=== PATIENT | female | born 1995 ===

== ENCOUNTER 2021-03-24 06:01 | Inpatient (IN) ==
[2021-03-24] MEDS ORDERED: BUTORPHANOL 2 MG/ML VIAL IV PRN (07:42)
[2021-03-24] MEDS ORDERED: MEPERIDINE 50 MG/1 ML VIAL IV PRN (07:42)
[2021-03-24] MEDS ORDERED: ONDANSETRON 4 MG/2 ML VIAL IV PRN ×2 (07:42→20:48)
[2021-03-24] MEDS ORDERED: LIDOCAINE 1% 50 ML VIAL MISC INJ ONE (07:42)
[2021-03-24] MEDS ORDERED: AMPICILLIN INJ 2,000 MG in SODIUM CHLORIDE 0.9% 100 ML IV ONE (07:45)
[2021-03-24] MEDS: LACTATED RINGERS 1,000 ML IV SCH ×2 (08:00→13:48)
[2021-03-24 08:33] LABS: Basophils % 0.1 % (0.0-0.8); Eosinophils # 0.1 10*3/uL (0.0-0.87); Hematocrit 35.7 VOL% (35.7-47.0); Hemoglobin 11.8 GM/DL (12.0-16.0); Immature Granulocytes % 0.6 %; Immature Granulocytes Absolute 0.05 #; Lymphocytes # 1.5 10*3/uL (1.4-4.0); Lymphocytes % 16.6 % (21.3-54.2); Mean Corpuscular HGB Conc 33.1 GM/DL (32-36); Mean Corpuscular Volume 77.9 FL (87-102); Mean Platelet Volume 11.2 FL (9.6-12.0); Monocytes % 6.7 % (1.7-12.7); Platelet Count 211 T/CUMM (130-400); Red Blood Count 4.58 MC/CUMM (3.8-5.5); Red Cell Distribution Width 14.8 % (9.3-17.3); White Blood Count 8.9 T/CUMM (4-12)
[2021-03-24 09:16] LABS: Albumin 2.6 G/DL (3.4-5.0); Bilirubin,Total 0.8 MG/DL (0.20-1.00); Calcium 8.4 MG/DL (8.5-10.1); Osmolality,Calculated 274.5 MOS/KG (273-304); Potassium 3.8 MMOL/L (3.5-5.1); Total Protein 6.4 G/DL (6.4-8.2)
[2021-03-24] MEDS: AMPICILLIN INJ 1,000 MG in SODIUM CHLORIDE 0.9% 100 ML IV SCH ×2 (11:57→15:54)
[2021-03-24] MEDS ORDERED: LACTATED RINGERS 1,000 ML IV ONE (12:43)
[2021-03-24] MEDS ORDERED: diphenhydrAMINE 50 MG/1 ML VIAL IV PRN ×2 (12:43)
[2021-03-24] MEDS ORDERED: FAMOTIDINE 20 MG/2 ML VIAL IV ONE (12:43)
[2021-03-24] MEDS ORDERED: PROMETHAZINE 25 MG/1 ML VIAL IM ONE (12:43)
[2021-03-24] MEDS ORDERED: NALOXONE 0.4 MG/ML VIAL IV PRN (12:43)
[2021-03-24] MEDS ORDERED: CITRIC ACID/SODIUM CITRATE 30 ML UDCUP PO ONE (12:43)
[2021-03-24] MEDS ORDERED: hydrOXYzine HCL 25 MG/1 ML VIAL IM PRN (12:43)
[2021-03-24] MEDS ORDERED: ePHEDrine 50 MG/ML VIAL IV PRN (12:43)
[2021-03-24] MEDS: fentaNYL 2 MCG/ROPIV 0.2% EPID 100 ML EPIDURAL SCH ×2 (13:26→19:45)
[2021-03-24 14:37] LABS: Bilirubin,Urine Negative (Negative); Blood, Urine Small mg/dL (Negative); Glucose,Urine (UA) Negative (Negative); Ketones,Urine Negative (Negative); Nitrite,Urine Negative (Negative); Protein,Urine Negative; RBC,Urine 6 /HPF (0-4); Squamous Epithelial Cell,Urine Occasional /HPF (0-10); Urine Appearance CLEAR (Clear); Urine Color Yellow (Yellow); Urine Specific Gravity 1.012 (1.001-1.035); Urine Urobilinogen < 2.0 EU/DL (0.2-1.0)
[2021-03-24] MEDS ORDERED: OXYTOCIN/LR 20 UNIT/1,000 ML BAG IV SCH (17:30)
[2021-03-24] MEDS ORDERED: fentaNYL 100 MCG/2 ML VIAL ONE (18:16)
[2021-03-24] MEDS ORDERED: miSOPROStoL 200 MCG TABLET ONE (19:56)
[2021-03-24] MEDS ORDERED: OXYTOCIN/LR 20 UNIT/1,000 ML BAG IV ONE ×2 (19:56→20:48)
[2021-03-24] MEDS ORDERED: TRANEXAMIC ACID 1,000 MG/10 ML VIAL ONE (19:56)
[2021-03-24] MEDS ORDERED: CARBOPROST TROMETHAMINE 250 MCG/ML AMP IM ONE (19:57)
[2021-03-24] MEDS ORDERED: METHYLERGONOVINE 0.2 MG/1 ML AMP ONE (19:57)
[2021-03-24] MEDS ORDERED: RHO(D) IMMUNE GLOBULIN 300 MCG SYRINGE IM ONE (20:48)
[2021-03-24] MEDS ORDERED: MEASLES/MUMPS/RUBELLA VACCINE 0.5 ML VIAL SUBCUT ONE (20:48)
[2021-03-24] MEDS ORDERED: BISACODYL 10 MG SUPP RECTAL PRN (20:48)
[2021-03-24] MEDS ORDERED: ACETAMINOPHEN 325 MG TABLET PO PRN (20:48)
[2021-03-24] MEDS ORDERED: IBUPROFEN 800 MG TABLET PO PRN (20:48)
[2021-03-24] MEDS ORDERED: LANOLIN 50% CREAM 0.3 OZ TUBE TOP PRN (20:48)
[2021-03-24] MEDS ORDERED: HYDROCORTISONE 2.5% RECTAL CREAM 30 GM TUBE TOP PRN (20:48)
[2021-03-24] MEDS ORDERED: BENZOCAINE 20%/MENTHOL 0.5% SPRAY 56 GM CAN TOP PRN (20:48)
[2021-03-24] MEDS ORDERED: DIPH/TET/ACEL PERT BOOSTER VACCINE 0.5 ML VIAL IM ONE (20:48)
[2021-03-24] MEDS ORDERED: oxyCODONE/ACETAMINOPHEN 5-325 MG TABLET PO PRN ×2 (20:48)
[2021-03-24] MEDS ORDERED: WITCH HAZEL PADS 100/JAR TOP PRN (20:48)
[2021-03-24 21:24] LABS: Cord Arterial Blood HCO3 21.5 MMOL/L
[2021-03-24 21:25] LABS: Cord Venous Blood HCO3 24.1 MMOL/L; Cord Venous Blood PCO2 45.2 MMHG; Cord Venous Blood PO2 34.4 MMHG
[2021-03-25] MEDS: DOCUSATE SODIUM 100 MG CAPSULE PO SCH ×3 (01:09→20:25)
[2021-03-25 05:07] LABS: Basophils % 0.1 % (0.0-0.8); Eosinophils # 0.1 10*3/uL (0.0-0.87); Eosinophils % 1.1 % (0.00-10.9); Hematocrit 31.3 VOL% (35.7-47.0); Hemoglobin 10.2 GM/DL (12.0-16.0); Immature Granulocytes % 0.4 %; Immature Granulocytes Absolute 0.04 #; Lymphocytes # 1.3 10*3/uL (1.4-4.0); Lymphocytes % 14.5 % (21.3-54.2); Mean Corpuscular HGB Conc 32.6 GM/DL (32-36); Mean Corpuscular Volume 78.6 FL (87-102); Mean Platelet Volume 10.9 FL (9.6-12.0); Neutrophils % 77.9 % (38.7-73.9); Platelet Count 175 T/CUMM (130-400); Red Blood Count 3.98 MC/CUMM (3.8-5.5); Red Cell Distribution Width 14.9 % (9.3-17.3)
[2021-03-25] MEDS: SERTRALINE 50 MG TABLET PO SCH (10:31)
[2021-03-25] MEDS ORDERED: MAGNESIUM HYDROXIDE SUSP 30 ML UDCUP PO PRN (20:16)
[2021-03-26] MEDS: DOCUSATE SODIUM 100 MG CAPSULE PO SCH (08:50)
[2021-03-26] MEDS: SERTRALINE 50 MG TABLET PO SCH (08:50)
[2021-03-26 10:00] VITALS: BP 124/73
[2021-03-26] MEDS ORDERED: SERTRALINE 50 MG TABLET PO SCH (10:30)
== END 2021-03-26 13:25 | disposition home or self-care (01) | DRG 807 ==
LOC: N.LD 06:01 → N.OB 03-25 00:42
PROVIDERS: ADMIT Obstetrics & Gynecology; ATTEND Obstetrics & Gynecology